=== PATIENT | male | born 1950 | race Caucasian/White ===

== ENCOUNTER → 2018-07-20 | Outpatient (CLI) | payer BC ==
--- NOTE | 2018-07-20 18:37 | PN ---
PROGRESS NOTE DATE OF SERVICE: 07/20/2018 This patient is a 67-year-old gentleman who has been followed in Sleep Center for treatment of obstructive sleep apnea-hypopnea syndrome. Patient continues successfully to use his CPAP equipment every night for the whole night without significant problems with mask fitting, pressure or humidification. [place] Sleepiness Scale today is 11. I checked his CPAP unit. CPAP pressure is 12 cm of water. Usage for the last month is 29/30 nights for more than 4 hours. Average usage is 6.7 hours. Leak is 29 L/minute, which is borderline. Apnea-hypopnea index only 1.18, which is absolutely perfect. MEDICATIONS: 1. Amlodipine. 2. Omeprazole. 3. Hydrochlorothiazide. 4. Lorazepam. 5. Quinapril. PHYSICAL EXAMINATION: GENERAL: A pleasant patient in no distress. VITAL SIGNS: BP 141/74, HR 71, RR 16, height 5 feet 9 inches, weight 236.0, body mass index 34.7, temperature 97.9, oxygen saturation at room air 98%. HEENT: PERRLA, EOMI. Evaluation of oropharynx showed tongue protrudes midline. Low position of soft palate. NECK: Supple. No JVD. Thyroid is not palpable. LUNGS: Clear to percussion and to auscultation. Good air exchange. No wheezing or rhonchi. HEART: S1, S2 regular. No murmurs, gallops or rubs. ABDOMEN: Slightly obese. EXTREMITIES: No clubbing or cyanosis. MONORAIL HELPER: Awake, alert, and oriented X3. Cranial nerves 2 to 7 intact. There is no fasciculation or atrophy. noted. No focal deficits observed. IMPRESSION: 1. Obstructive sleep apnea-hypopnea syndrome. Patient demonstrated 100% compliance with treatment, benefitting from treatment. 2. Mild obesity; body mass index 34.7. Patient lost 5 pounds since his previous visit. 3. Acid reflux. 4. Hypertension. 5. Hyperlipidemia. 6. No clinical symptoms of periodic limb movements. PLAN: 1. Patient will continue to use CPAP equipment with the same regimen of pressure as he is doing now. 2. We fitted the patient with a DreamWear [id number] new type of mask; patient likes it and wanted to try it. I will write a prescription for this mask. 3. Continue losing weight. 4. Sleep hygiene with regular time in bed for at least 8 hours. 5. No driving if feeling any sleepiness. Thank you very much for allowing me to participate in the management of your patient. Sincerely, Dallas Flores MD, PhD, FAASM Diplomat of [place] [employer] Labor Expediter of [facility] [place] MMODL / DANIEL: [id number] /
== END ==
LOC: SLEEP 16:43
PROVIDERS: ATTEND Internal Medicine
DX: G47.33 Obstructive sleep apnea (adult) (pediatric) (principal); E66.9 Obesity, unspecified; K21.9 Gastro-esophageal reflux disease without esophagitis; E78.5 Hyperlipidemia, unspecified; I10 Essential (primary) hypertension; Z68.34 Body mass index [BMI] 34.0-34.9, adult; Z79.899 Other long term (current) drug therapy; Z99.89 Dependence on other enabling machines and devices

== ENCOUNTER → 2018-11-09 | Outpatient (CLI) | payer MEDICARE, BC ==
--- NOTE | 2018-11-09 12:46 | SFUN ---
SLEEP CENTER FOLLOW UP NOTE DATE OF SERVICE: 11/09/2018 A 67-year-old gentleman who has been followed in Sleep Center for treatment of obstructive sleep apnea-hypopnea syndrome. Patient successfully continued to use his CPAP equipment every night for the whole night without significant problems related to mask fitting, pressure or humidification. He sleeps well and does not snore. [place] Sleepiness Scale is 6. I checked his CPAP unit. CPAP pressure is 12 cm of water. Usage is 100% of nights more than 4 hours. Average usage is 7.7 hours. Leak is borderline 29 L/minute. Apnea- hypopnea index is 1.2, which is absolutely normal. MEDICATIONS: Amlodipine, omeprazole, hydrochlorothiazide, lorazepam, Benadryl, Flomax. PHYSICAL EXAM: Patient in no distress BP 133/73, HR 67, RR 14, height 5 feet 9 inches, weight 232.4 pounds with a mass index 34.2, temperature 98.0, oxygen saturation at room air 96% on our oropharynx low position of soft palate, Mallampati 4 abdomen slightly diabetes under physical exam normal VS for my template. IMPRESSION: 1. Obstructive sleep apnea-hypopnea syndrome. The patient demonstrated 100% compliance with treatment benefitting from treatment. 2. Mild obesity. 3. Hypertension. 4. Acid reflux. 5. History of anxiety. 6. Hyperlipidemia. 7. Two recent urinary tract infection was in the range of some inflammation in to the wound to date of old increase size of first is BPH. 8. History of BPH. PLAN: 1. Patient will continue to use CPAP equipment every night for the whole night. 2. Watching and losing weight. 3. Sleep hygiene with regular time in bed for at least 7-1/2 to 8 hours. 4. No driving if feeling sleepiness. 5. We will maintain all necessary CPAP prescription for the AirFit P10 nasal pillow mask, tube, filters. 6. Possibly patient has to use a chin strap. 7. Followup visit in 1 year or earlier if patient has any problems. 8. Thank you very much for allowing me to participate in management of your patient. MMODL / IJN: [id number] /
== END ==
LOC: SLEEP 10:39
PROVIDERS: ATTEND Internal Medicine
DX: G47.33 Obstructive sleep apnea (adult) (pediatric) (principal); E66.9 Obesity, unspecified; I10 Essential (primary) hypertension; K21.9 Gastro-esophageal reflux disease without esophagitis; E78.5 Hyperlipidemia, unspecified; N39.0 Urinary tract infection, site not specified; N40.0 Benign prostatic hyperplasia without lower urinary tract symptoms; Z99.89 Dependence on other enabling machines and devices

== ENCOUNTER → 2019-03-01 | Outpatient (CLI) | payer MEDICARE, BC ==
--- NOTE | 2019-03-01 12:15 | SFUN ---
SLEEP CENTER FOLLOW UP NOTE DATE OF SERVICE: A 68-year-old gentleman who has been followed in the Sleep Center for treatment of obstructive sleep apnea-hypopnea syndrome, Recently patient received his new CPAP unit, and he is able to use CPAP equipment every night for the whole night without significant problems. [place] Sleepiness Scale today is 8. I checked his CPAP unit. Usage is 100% of nights more than 4 hours. Average usage is 7.4 hours per night. CPAP pressure is 12 cm of water. Apnea-hypopnea index only 1.0. Leak is 30 L/minute which is slightly high, but again apnea-hypopnea index is normal while the patient using his CPAP equipment. MEDICATIONS: Flomax, hydrochlorothiazide, lorazepam, amlodipine and metoprolol. PHYSICAL EXAM: Patient in no distress. BP 129/71, HR 72, RR 16, weight 232, temp 97.5, oxygen saturation at room air 96%. OROPHARYNX: Low position of soft palate. Mallampati 3. ABDOMEN: Slightly obese. Neck Supple, no JVD. Thyroid is not palpable. LUNGS Clear to percussion and to auscultation. Good air exchange. No wheezing or rhonchi. HEART S1, S2 regular. No murmurs, gallops, or rubs. EXTREMITIES No clubbing or cyanosis. RADIATION CONTROL WORKER Awake, alert, and oriented X3. Cranial nerves 2 to 7 intact. There is no fasciculation or atrophy. noted. No focal deficits observed. IMPRESSION: 1. Obstructive sleep apnea-hypopnea syndrome. Patient demonstrated 100% compliance with treatment benefitting from treatment. 2. Obesity. 3. Hypertension. 4. Acid reflux. 5. History of anxiety. 6. Hyperlipidemia. 7. History of benign prostatic hypertrophy. PLAN: 1. Patient will continue to use CPAP equipment every night for the whole night. 2. Losing weight. 3. Sleep hygiene with regular time bed for at least 7-1/2 to 8 hours. 4. No driving if feeling sleepiness. Thank you very much for allowing me to participate in the management of your patient. Sincerely, Dallas Flores MD, PhD, FAASM Diplomat of [employer] [employer] [employer] Brush Worker of [facility] [place] MMODL / IJN: [id number] /
== END | disposition home or self-care (01) ==
LOC: SLEEP 11:16
PROVIDERS: ATTEND Internal Medicine
DX: G47.33 Obstructive sleep apnea (adult) (pediatric) (principal); E66.9 Obesity, unspecified; I10 Essential (primary) hypertension; K21.9 Gastro-esophageal reflux disease without esophagitis; E78.5 Hyperlipidemia, unspecified; Z86.59 Personal history of other mental and behavioral disorders; Z87.448 Personal history of other diseases of urinary system; Z99.89 Dependence on other enabling machines and devices; Z79.899 Other long term (current) drug therapy

== ENCOUNTER 2019-11-02 07:53 | Day surgery (SDC) | payer BC, MEDICARE ==
[2019-10-31 08:42] VITALS: BMI 32.7
[2019-11-02 08:22] VITALS: TEMP 98.9
[2019-11-02 09:05] VITALS: RESP 17
[2019-11-02 09:14] VITALS: BP 136/64; PULSE 69
== END 2019-11-02 09:34 | disposition home or self-care (01) ==
LOC: ORWHC2ENDO 07:53
PROVIDERS: ATTEND Internal Medicine Gastroenterology
DX: Z12.11 Encounter for screening for malignant neoplasm of colon (principal); K62.1 Rectal polyp; K57.30 Diverticulosis of large intestine without perforation or abscess without bleeding; Z80.0 Family history of malignant neoplasm of digestive organs; I10 Essential (primary) hypertension; G47.33 Obstructive sleep apnea (adult) (pediatric); N40.0 Benign prostatic hyperplasia without lower urinary tract symptoms; Z88.0 Allergy status to penicillin; Z88.5 Allergy status to narcotic agent; Z79.899 Other long term (current) drug therapy
CPT/HCPCS: 88305; 45380; J2704

== ENCOUNTER → 2020-02-07 | Outpatient (CLI) | payer MEDICARE, BC ==
--- NOTE | 2020-02-07 18:00 | SFUN ---
SLEEP CENTER FOLLOW UP NOTE DATE OF SERVICE: 02/07/2020 This patient is a 69-year-old gentleman who has been followed in Sleep Center for treatment of obstructive sleep apnea-hypopnea syndrome. The patient continues to use his CPAP equipment every night. He is satisfied with his nasal pillow mask. He sleeps well. [place] Sleepiness Scale today is 9. I checked his CPAP unit. CPAP pressure is 12 cm of water. Usage is 30/30 nights for more than 4 hours with average usage 7.9 hours per night. Leak is around 36 L/minute, which is high, but apnea-hypopnea index is absolutely normal at only 1.2. MEDICATIONS: Flomax, hydrochlorothiazide, lorazepam, amlodipine, metoprolol, finasteride, Cialis. PHYSICAL EXAMINATION: GENERAL: A pleasant patient in no distress. VITAL SIGNS: BP 121/65, HR 74, RR 16, height 5 feet 9 inches, weight 208, body mass index 30.7, temperature 98.5, oxygen saturation at room air 97%. HEENT: PERRLA, EOMI. Evaluation of oropharynx showed tongue protrudes midline. Low position of soft palate. Mallampati III. NECK: Supple. No JVD. Thyroid is not palpable. LUNGS: Clear to percussion and to auscultation. Good air exchange. No wheezing or rhonchi. HEART: S1, S2 regular. No murmurs, gallops or rubs. ABDOMEN: Soft and nontender. Bowel sounds are present. No organomegaly. EXTREMITIES: No clubbing or cyanosis. SALES BRANCH MANAGER: Awake, alert, and oriented X3. Cranial nerves 2 to 7 intact. There is no fasciculation or atrophy. noted. No focal deficits observed. IMPRESSION: 1. Obstructive sleep apnea-hypopnea syndrome. Patient demonstrated 100% compliance with treatment, benefitting from treatment. 2. Some leak has been documented by reading from the machine. Patient started to use a chin strap. 3. Obesity. Patient has lost about 25 pounds since his previous visit. 4. Hypertension. 5. Acid reflux. 6. History of anxiety. 7. Hyperlipidemia. 8. History of benign prostatic hypertrophy. The patient is preparing for surgical treatment of BPH. PLAN: 1. Continue using CPAP equipment every night for the whole night. 2. Sleep hygiene with regular time in bed for at least 7-1/2 to 8 hours. 3. No driving if feeling any sleepiness. 4. Patient will take CPAP unit with him to the hospital. 5. Follow-up visit in 6 months. Thank you very much for allowing me to participate in the management of your patient. Sincerely, Dallas Flores MD, PhD, FAASM Diplomat of [place] Dam Worker of [facility] [place] MMODL / ARICN: [id number] /
== END | disposition home or self-care (01) ==
LOC: SLEEP 13:27
PROVIDERS: ATTEND Internal Medicine
DX: G47.33 Obstructive sleep apnea (adult) (pediatric) (principal); E66.9 Obesity, unspecified; I10 Essential (primary) hypertension; K21.9 Gastro-esophageal reflux disease without esophagitis; E78.5 Hyperlipidemia, unspecified; Z68.30 Body mass index [BMI] 30.0-30.9, adult; Z86.59 Personal history of other mental and behavioral disorders; Z87.430 Personal history of prostatic dysplasia; Z79.899 Other long term (current) drug therapy

== ENCOUNTER → 2020-09-10 | Outpatient (CLI) | payer MEDICARE ==
--- NOTE | 2020-09-10 19:58 | SFUN ---
SLEEP CENTER FOLLOW UP NOTE DATE OF SERVICE: 09/10/2020 This is a 69-year-old gentleman has been followed in Sleep Center for treatment of obstructive sleep apnea-hypopnea syndrome. Patient successfully continues to use his CPAP equipment every night. Sometimes he has difficulties breathing through the nose. He is using a nasal mask. He is thinking that maybe he should have also a full-face mask. [place] Sleepiness Scale today is 6. I checked the patient's CPAP unit. CPAP pressure is 12 cm of water. Usage is 30/30 nights for more than 4 hours with average usage 7.9 hours per night. Leak is 23 L/minute, which is significantly less than during the last time when it was 36 L/minute. Apnea-hypopnea index is 1.2, which is perfect. MEDICATIONS: 1. Hydrochlorothiazide 25 mg once a day. 2. Quinapril 20 mg twice a day. 3. Amlodipine 5 mg once a day. 4. Lorazepam 1 mg on a p.r.n. basis. 5. Omeprazole 20 mg once a day. PHYSICAL EXAMINATION: GENERAL: A pleasant patient in no distress. VITAL SIGNS: BP 141/73, HR 64, RR 15, height 5 feet 10 inches, weight 221.6, temperature 98.2, oxygen saturation on room air 97%. HEENT: PERRLA, EOMI. Evaluation of oropharynx showed tongue protrudes midline. Low position of soft palate. Mallampati III. NECK: Supple. No JVD. Thyroid is not palpable. LUNGS: Clear to percussion and to auscultation. Good air exchange. No wheezing or rhonchi. HEART: S1, S2 regular. No murmurs, gallops or rubs. ABDOMEN: Slightly obese. EXTREMITIES: No clubbing or cyanosis. ONCOLOGY COORDINATOR: Awake, alert, and oriented X3. Cranial nerves 2 to 7 intact. There is no fasciculation or atrophy. noted. No focal deficits observed. IMPRESSION: 1. Obstructive sleep apnea-hypopnea syndrome. Patient demonstrated great compliance with treatment, benefitting from treatment. 2. Obesity. 3. Status post recent TURP surgical procedure for BPH. 4. Hypertension. 5. Acid reflux. 6. History of anxiety. 7. History of BPH. PLAN: 1. Patient will continue to use PAP equipment every night for the whole night. 2. Sleep hygiene with regular time in bed for at least 7-1/2 to 8 hours. 3. Precautions related to driving. No driving if feeling sleepiness. 4. I will maintain all necessary prescription for PAP supplies including mask, tube, filters. 5. Watching weight. 6. No driving if feeling sleepiness. 7. Follow-up visit in 6 months or earlier if patient has any problems. 8. Prescription for full-face mask of patient's choice. Thank you very much for allowing me to participate in the management of your patient. Sincerely, Dallas Flores MD, PhD, FAASM Diplomat of [place] [employer] Carrot Grader Inspector of [facility] [place] MMODL / IJN: [id number] /
== END | disposition home or self-care (01) ==
LOC: SLEEP 14:31
PROVIDERS: ATTEND Internal Medicine
DX: G47.33 Obstructive sleep apnea (adult) (pediatric) (principal); E66.9 Obesity, unspecified; I10 Essential (primary) hypertension; K21.9 Gastro-esophageal reflux disease without esophagitis; Z87.430 Personal history of prostatic dysplasia; Z86.59 Personal history of other mental and behavioral disorders; Z90.79 Acquired absence of other genital organ(s); Z79.899 Other long term (current) drug therapy

== ENCOUNTER → 2020-10-28 | Outpatient (CLI) | payer MEDICARE ==
--- NOTE | 2020-10-28 14:12 | ECHOS ---
STRESS ECHOCARDIOGRAM LUMASON: N/A Vial INDICATIONS: Chest pain MEDICATIONS: BASELINE HEART RATE: 65 BASELINE BLOOD PRESSURE: 119/57 MAXIMUM HEART RATE: 146 MAXIMUM BLOOD PRESSURE: 165/57 85% MPHR: 130 100% MPHR: 153 METS: 8.7 MAXIMUM STAGE REACHED: 3 TOTAL EXERCISE TIME: 7 minutes and 15 seconds. CLINICAL INFORMATION: Baseline rhythm is sinus mechanism, rate 65, normal axis and intervals, poor R progression. Rare PVCs. Baseline blood pressure 119/57 mmHg. Patient exercised on Cyril protocol for 7 minute 15 seconds reaching peak rate 146 beats per minute which is equal to 95% of maximum predicted heart rate. Peak blood pressure 165/57 mmHg. Patient had mild chest discomfort at peak exercise. Electrocardiograph monitoring revealed [address]- segment depression that resolved in recovery. Baseline echocardiogram revealed normal wall motion. At peak exercise, there was a moderate-sized area of mild hypokinesis involving the mid anterior and anteroseptal wall with improvement in recovery images. CONCLUSION: 1. Average exercise tolerance with borderline positive electrocardiograph stress testing. 2. Abnormal stress echocardiogram with evidence of stress-induced ischemia involving the mid anterior and anteroseptal wall. MMODL / IJN: [id number] /
== END ==
LOC: RADNMMAIN 09:50
PROVIDERS: ATTEND Internal Medicine
DX: I99.8 Other disorder of circulatory system (principal)
CPT/HCPCS: 93351

== ENCOUNTER 2020-11-04 06:31 | Day surgery (SDC) | payer MEDICARE ==
[~2020-11-04 06:31] MED LIST: ALPRAZolam 0.25 MG TAB PO PRN; ALPRAZolam 0.5 MG TAB PO PRN; HEPARIN SODIUM,PORCINE 10,000 UNIT in SODIUM CHLORIDE 0.9% 1,000 ML IRRIGATION PRN; HEPARIN SODIUM,PORCINE 2,500 UNIT in SODIUM CHLORIDE 0.9% 250 ML IRRIGATION PRN; SODIUM CHLORIDE 0.9% 1,000 ML in EMPTY BAG 1 BAG IV ONE
[2020-11-04] MEDS ORDERED: IV FLUID CONTINUATION 950 ML IV ONE (06:43)
[2020-11-04] MEDS ORDERED: ATORVASTATIN 80 MG TAB PO ONE (07:00)
[2020-11-04] MEDS ORDERED: ASPIRIN 325 MG TAB PO ONE (07:00)
[2020-11-04] MEDS ORDERED: HEPARIN SODIUM 1,000 UN/ML (10ML VL) ONE (07:39)
[2020-11-04] MEDS ORDERED: LIDOCAINE 1% INJ 10MG/ML (20 ML MDV) ONE (07:40)
[2020-11-04] MEDS ORDERED: VERAPAMIL 2.5 MG/ML 2 ML AMP ONE (07:40)
[2020-11-04] MEDS ORDERED: fentaNYL (PF) 50 MCG/ML 2 ML AMP ONE (07:40)
[2020-11-04 07:43] LABS: Basophils % (A) 0 %; Eosinophils # (A) 0.1 k/uL (0-0.7); Eosinophils % (A) 2 %; HCT 42.6 % (39.0-53.0); Lymphocytes # (A) 1.8 k/uL (1.0-4.8); Lymphocytes % (A) 29 %; MCH 31.2 pg (25.0-35.0); MCHC 35.3 g/dL (31.0-37.0); MCV 88.4 fL (80.0-100.0); Mean Platelet Volume 8.7; Monocytes # (A) 0.4 k/uL (0-1.0); Monocytes % (A) 7 %; Neutrophils # (A) 3.7 k/uL (1.3-7.7); Neutrophils % (A) 60 %; Platelet Count 289 k/uL (150-450); RBC 4.82 m/uL (4.30-5.90); RDW 12.4 % (11.5-15.5); WBC 6.2 k/uL (3.8-10.6)
[2020-11-04] MEDS ORDERED: fentaNYL (PF) 50 MCG/ML 2 ML AMP IVP ONE (07:47)
[2020-11-04] MEDS ORDERED: LIDOCAINE 1% INJ 10MG/ML (20 ML MDV) SQ ONE (07:48)
[2020-11-04] MEDS ORDERED: VERAPAMIL SYRINGE (5 MG/10 ML) INTRAARTER ONE (07:52)
[2020-11-04] MEDS ORDERED: MIDAZOLAM 2 MG/2 ML VIAL IVP ONE (07:58)
[2020-11-04] MEDS: HEPARIN SODIUM 1,000 UN/ML (10ML VL) IV ONE ×2 (08:00→08:06)
[2020-11-04] MEDS ORDERED: CLOPIDOGREL 75 MG TAB ONE (08:10)
[2020-11-04] MEDS ORDERED: CLOPIDOGREL 75 MG TAB PO ONE (08:13)
[2020-11-04] MEDS ORDERED: NITROGLYCERIN 1000MCG/10ML SYRINGE INTRACORON ONE (08:20)
[2020-11-04] MEDS ORDERED: IOPAMIDOL-370 125ML BTL INJ ONE ×2 (08:23→08:59)
[2020-11-04] MEDS ORDERED: ADENOSINE 90 MG in SODIUM CHLORIDE 0.9% 60 ML IVP ONE (08:45)
[2020-11-04] MEDS ORDERED: NITROGLYCERIN SL TABS 0.4 MG TAB SUBLINGUAL PRN (09:15)
[2020-11-04] MEDS ORDERED: RX INFO: IV CONTRAST WAS GIVEN 1 EACH MISC MISCELLANE PRN (09:15)
[2020-11-04] MEDS ORDERED: ZOLPIDEM 5 MG TAB PO PRN (09:15)
[2020-11-04] MEDS ORDERED: SODIUM CHLORIDE 0.9% 1,000 ML IV SCH (09:15)
[2020-11-04] MEDS ORDERED: ATROPINE SULFATE 0.1 MG/ML 10ML SYRINGE IV PRN (09:15)
[2020-11-04] MEDS ORDERED: prednisoLONE ACETATE 1% OPHTH DROPS 5 ML BTL BOTH EYES PRN (09:16)
--- NOTE | 2020-11-04 09:45 | CC ---
CARDIAC CATHETERIZATION REPORT Mr. Meeks is a 69-year-old male with a known history of hypertension, hyperlipidemia, who has been complaining of chest discomfort. He underwent stress echocardiogram revealed evidence of inducible ischemia in the mid antral and septal wall. In view of that, recommendation was made regarding cardiac catheterization. The procedure as well as the risks and the complications were discussed with the patient who is in full understanding and agreement. PROCEDURE: Patient was brought to the oven laborer in a fasting semi-sedated state after receiving fentanyl and Benadryl and achieving moderate conscious sedated state. Using Xylocaine anesthesia and Seldinger technique, a 6-[place] Citizen sheath was introduced in the right radial artery. Selective right and left coronary angiography performed using 5- [place] Citizen 3.5 bend right and left James catheter. Multiple views of the coronary artery including hemiaxial views were obtained. Following that, a 5-[place] Citizen tight pigtail catheter was introduced in the left ventricle and pressures were calculated. Following that, catheters were removed. Images were reviewed. FINDINGS: FLUOROSCOPY: There was severe calcification involving the LAD as well as the right coronary artery. LEFT MAIN: This is a short size vessel, bifurcating into left circumflex, left anterior descending artery. Left main coronary artery has no evidence of high-grade stenosis. LEFT ANTERIOR DESCENDING ARTERY: This is a large-sized vessel reaching to the apex with a wraparound apex segment giving rise to 2 diagonal branches. The first one is larger in caliber. The LAD proximally prior to the takeoff of the first septal supervisor throwing department has a 90% stenosis. There is another 60% to 70% plaque in the mid LAD. The rest of the vessel has no high-grade stenosis. LEFT CIRCUMFLEX: This is a nondominant vessel giving rise to 2 obtuse marginal branches. The first one is large in caliber. The left circumflex has mild intimal disease without any evidence of high-grade stenosis. RIGHT CORONARY ARTERY: This is a large dominant vessel bifurcating distally PDA and posterolateral segment and branches. The right coronary artery in the mid segment has a 60% to 70% plaque. The distal vessel has mild intimal disease without any evidence of high-grade stenosis. LEFT VENTRICULOGRAM: The left ventriculogram was not performed. HEMODYNAMICS: There was no gradient across the aortic valve. The left ventricular end- diastolic pressure was 12-16 mmHg. CONCLUSION: 1. Calcified coronary arteries. 2. Critical stenosis in the proximal LAD with moderate disease in the mid LAD. 3. Moderate to significant disease in the mid RCA. 4. Mild disease in left circumflex. RECOMMENDATION: In view of finding anatomy, I recommend proceeding with angioplasty and stenting of the LAD and subsequent measurement of the fractional flow reserve of the RCA to determine the need to undergo any further intervention. Those findings and recommendation were discussed with the patient and he is in full understanding and agreement. MMRADHA / ARICN: [id number] / MTDDiane
[2020-11-04 09:46] VITALS: RESP 16
--- NOTE | 2020-11-04 09:53 | PTCA ---
PERCUTANEOUSTRANS CORORONARY ANGIOGRAPHY Mr. Meeks is a 69-year-old male with known history of hypertension, hyperlipidemia, who had an abnormal stress echocardiogram underwent cardiac catheterization was found to have critical stenosis involving the proximal LAD with moderate significant disease in the mid right coronary artery. In view of that, recommendation was made regarding angioplasty and stenting, the procedure as well as the risks and the complications were discussed with the patient who is in full understanding and agreement. PROCEDURE: A 6-Jamaican EBU 3.75 guiding catheter introduced in the system. After cannulating the left main, a 0.014 balanced medium weight J-wire was advanced across the lesion, positioned distally. Subsequently a 3.0 x 12 mm NC Trek balloon was advanced and 2 inflations maximum of 12 atmospheres were done. From that, the balloon was removed and a 3.5 x 18 mm Xience Velma stent was deployed and postdilated at 16 atmospheres. Following that, the balloon was removed and a 4.0 x 12 mm NC Trek balloon was advanced and one inflation of proximal segment of the stent at 12 atmospheres were done. After the last inflation, after appropriate wait, the balloon and the guidewire were withdrawn back in the guiding catheter. Images were obtained and repeated. Those images reveal stable successful stenting. At that point, the guiding catheter, the balloon and the guidewire were removed and a 6-Jamaican FR4 guiding catheter introduced in the system and after cannulating the right coronary ostium a Doppler flow wire was introduced and positioned in the distal right coronary artery. After normalization, FFR was measured after the infusion of adenosine per protocol and it was 80%. At that point, a 4.0 x 15 mm Xience Velma stent was advanced, deployed and postdilated at 16 atmospheres. After the last inflation, after appropriate wait the balloon and the guidewire were withdrawn back in the guiding catheter. Images were obtained and repeated. Those images reveal stable successful stenting. At that point, the guiding catheter, the balloon and the guidewire were removed. The sheath was removed. Hemostasis was obtained with deployment of a TR band. There was no immediate complication. Patient was returned to his room in stable condition. Of note, the patient received a total of 8000 units of intravenous heparin, his ACT was followed. He received an oral loading dose of clopidogrel. He had chest discomfort and mild EKG changes that resolved at the end the procedure. RESULTS: 1. Successful stenting of the proximal LAD with reduction of stenosis from 90% to 0%. 2. Successful stenting of the mid right coronary artery with reduction of stenosis from 60% to 70% down to 0% with a pre-positive FFR. RECOMMENDATION: Patient will be continued on aspirin, Plavix and statin. Dual antiplatelet treatment was discussed with the patient and he is in full understanding and agreement. Duration of sedation is 69 minutes. MMODL / IJN: [id number] /
--- NOTE | 2020-11-04 10:01 | LTR ---
November 04, 2020 Re: Luis Meeks Dear Dr. Ibarra: I had the opportunity to perform cardiac catheterization and coronary angioplasty and stenting on Mr. Meeks at [facility] on the 04 of November and a full copy of the procedure note will be forwarded to you. In brief, he was found to have critical stenosis in the proximal LAD and moderate to severe disease in the mid right coronary artery. He underwent successful stenting of the proximal LAD and subsequently underwent fractional flow reserve measurement of the mid RCA, that came to be hemodynamically significant, underwent stenting of that vessel. I am hopeful that this procedure will stabilize his status. Thank you again for allowing me the opportunity to participate in his care. Please feel free to call for any questions. Sincerely yours, MD SANDRINE CastellonL / DANIEL: [id number] /
[2020-11-04] MEDS: lisinopriL 20 MG TAB PO SCH (20:17)
[2020-11-04] MEDS ORDERED: ATORVASTATIN 80 MG TAB PO SCH (21:00)
[2020-11-05] MEDS: NITROGLYCERIN SL TABS 0.4 MG TAB SUBLINGUAL PRN ×2 (00:12→00:17)
[2020-11-05] MEDS: MAG HYDROX/AL HYDROX/SIMETH 30 ML CUP PO PRN ×2 (00:25→10:18)
[2020-11-05 05:27] LABS: African American GFR (CKD) >90 (>60 ml/min/1.73 sqM); Anion Gap 10 mmol/L; Blood Urea Nitrogen 17 mg/dL (9-20); Calcium 9.6 mg/dL (8.4-10.2); Carbon Dioxide 29 mmol/L (22-30); Chloride 96 mmol/L (98-107); Glucose 103 mg/dL (74-99); Non-African American GFR(CKD) >90 (>60 ml/min/1.73 sqM); Potassium 4.4 mmol/L (3.5-5.1); Sodium 135 mmol/L (137-145)
[2020-11-05 07:58] VITALS: BP 120/73; PULSE 61; TEMP 97.6
[2020-11-05] MEDS: lisinopriL 20 MG TAB PO SCH (08:55)
[2020-11-05] MEDS ORDERED: PANTOPRAZOLE 40 MG TABLET PO SCH (09:00)
[2020-11-05] MEDS ORDERED: MULTIVITAMINS, THERA 1 EACH TAB PO SCH (09:00)
[2020-11-05] MEDS ORDERED: MAGNESIUM OXIDE 400 MG TAB PO SCH (09:00)
[2020-11-05] MEDS ORDERED: hydroCHLOROthiazide 25 MG TAB PO SCH (09:00)
[2020-11-05] MEDS ORDERED: amLODIPine 5 MG TAB PO SCH (09:00)
[2020-11-05] MEDS ORDERED: ASPIRIN 81 MG PO SCH (09:00)
[2020-11-05] MEDS ORDERED: CHOLECALCIFEROL 25 MCG (1000 IU) TABLET PO SCH (09:00)
[2020-11-05] MEDS ORDERED: CLOPIDOGREL 75 MG TAB PO SCH (09:15)
--- NOTE | 2020-11-05 13:37 | P.DS ---
Providers Attending physician: Rudy Sandoval Consults: 11/04/20 09:15 Consult Physician Routine Consulting Provider: [facility] Consult Reason/Comments: Post Interventional patient Do you want consulting provider notified?: Already Contacted INTERVAL HISTORY: The patient is a 69-year-old male admitted to the hospital by . History of hypertension, hyperlipidemia, who had an abnormal stress echocardiogram underwent cardiac catheterization was found to have critical stenosis involving the proximal LAD with moderate significant disease in the mid right coronary artery. Recommendation was made regarding angioplasty and stenting, the procedure as well as the risks, consultations were discussed with the patient. On 11/04/20, cardiac catheterization was performed with PCI successful stenting of the proximal LAD with reduction of stenosis from 90% 0%. Successful stenting of the mid right coronary artery reduction of stenosis from 60% to 70% down to 0% with a pre-positive FFR. Patient will continue on aspirin, Plavix and statin, as well as his antihypertensive medication. On 11/05/20 patient did have some atypical chest pain, similar symptoms prior to catheterization. Troponins were monitored and mildly elevated, peaked at 0.099. Patient was stable for discharge. PHYSICAL EXAMINATION: Blood pressure 120/73, heart rate 61, respirations 16, temp 97.6. Patient is 97 % room air. HEART: S1, S2 normal. LUNGS: Clear to auscultation. NECK: Supple. ABDOMEN: Soft. EXTREMITIES: 2+ peripheral pulses. Right radial artery cath site clean and dry, 2+ pulses, no ecchymosis or bleeding LAB DATA: Sodium 135, potassium 4.4, BUN 17, creatinine 0.84, troponin trend 0.099-->0.071 FINAL IMPRESSION: 1. Hypertension 2. Coronary artery disease s/p cardiac catheterization and stenting of the proximal LAD and mid RCA 3. History of obstructive sleep apnea- uses CPAP. 4. Dyslipidemia. PLAN: Patient may be able to be discharged home today. We will make him a follow-up appointment with Dr. Sandoval at scheduled appointment on 11/12/20. Primary care physician: Rudy Ibarra MD Plan - Discharge Summary Discharge Rx Participant: No New Discharge Prescriptions: New Atorvastatin [Lipitor] 80 mg PO HS 90 Days #90 tab Clopidogrel [Plavix] 75 mg PO DAILY 90 Days #90 tab Aspirin 81 mg PO DAILY chew Continue amLODIPine BESYLATE [Amlodipine Besylate] 5 mg PO DAILY Quinapril HCl [Accupril] 20 mg PO BID Omeprazole 20 mg PO DAILY LORazepam [Lorazepam] 1 mg PO HS PRN PRN Reason: SLEEP Hydrochlorothiazide 25 mg PO DAILY Multivitamin [Men's Multi-Vitamin] 1 tab PO DAILY Fish Oil/Dha/Epa [Fish Oil 1,200 mg Fish Oil] 1 each PO DAILY Turmeric Root Extract [Turmeric] 500 mg PO DAILY Prednisolone Acetate/Pf [Prednisolone Acet 1% Eye Drop] 1 drop BOTH EYES DIRECTED PRN PRN Reason: allergic conjunctivitis Famotidine [Pepcid] 20 mg PO DAILY PRN PRN Reason: Heartburn Cholecalciferol [Vitamin D3 (25 Mcg = 1000 Iu)] 50 mcg PO DAILY Magnesium 400 mg PO DAILY Aspirin 81 mg PO DAILY Discharge Medication List Hydrochlorothiazide 25 mg PO DAILY 08/07/14 [History] LORazepam [Lorazepam] 1 mg PO HS PRN 08/07/14 [History] Omeprazole 20 mg PO DAILY 08/07/14 [History] Quinapril HCl [Accupril] 20 mg PO BID 08/07/14 [History] amLODIPine BESYLATE [Amlodipine Besylate] 5 mg PO DAILY 08/07/14 [History] Multivitamin [Men's Multi-Vitamin] 1 tab PO DAILY 01/01/15 [History] Fish Oil/Dha/Epa [Fish Oil 1,200 mg Fish Oil] 1 each PO DAILY 10/31/19 [History] Prednisolone Acetate/Pf [Prednisolone Acet 1% Eye Drop] 1 drop BOTH EYES DIRECTED PRN 10/31/19 [History] Turmeric Root Extract [Turmeric] 500 mg PO DAILY 10/31/19 [History] Aspirin 81 mg PO DAILY 11/03/20 [History] Cholecalciferol [Vitamin D3 (25 Mcg = 1000 Iu)] 50 mcg PO DAILY 11/03/20 [History] Famotidine [Pepcid] 20 mg PO DAILY PRN 11/03/20 [History] Magnesium 400 mg PO DAILY 11/03/20 [History] Aspirin 81 mg PO DAILY chew 11/05/20 [Rx] Atorvastatin [Lipitor] 80 mg PO HS 90 Days #90 tab 11/05/20 [Rx] Clopidogrel [Plavix] 75 mg PO DAILY 90 Days #90 tab 03/17/21 [Rx] Follow up Appointment(s)/Referral(s): Rudy Sandoval MD [STAFF PHYSICIAN] - 11/12/20 3:00 pm
== END 2020-11-05 14:10 | disposition home or self-care (01) ==
LOC: CATHCVL 06:31 → 6NMEDSUR 09:05 → CATHCVL 11-05 14:10
PROVIDERS: ATTEND Internal Medicine Interventional Cardiology
DX: I25.10 Atherosclerotic heart disease of native coronary artery without angina pectoris (principal); I25.84 Coronary atherosclerosis due to calcified coronary lesion; I10 Essential (primary) hypertension; E78.00 Pure hypercholesterolemia, unspecified; Z82.49 Family history of ischemic heart disease and other diseases of the circulatory system; E78.5 Hyperlipidemia, unspecified; G47.33 Obstructive sleep apnea (adult) (pediatric); Z99.89 Dependence on other enabling machines and devices; Z90.49 Acquired absence of other specified parts of digestive tract; Z98.890 Other specified postprocedural states; Z87.891 Personal history of nicotine dependence; Z79.82 Long term (current) use of aspirin; Z79.899 Other long term (current) drug therapy; Z88.0 Allergy status to penicillin
CPT/HCPCS: 93571; 93458; 85347; 80048; 84484; 85025; C9600 ×2; C1769 ×2; C1887 ×2; C1725 ×2; C1874; C1894; J2250; J2001; J3010; J1644; J0153; Q9967

== ENCOUNTER → 2021-04-22 | Outpatient (CLI) | payer MEDICARE ==
--- NOTE | 2021-04-23 10:20 | SFUN ---
SLEEP CENTER FOLLOW UP NOTE DATE OF SERVICE: 04/22/2021 70-year-old gentleman has been followed in Sleep Center for treatment of obstructive sleep apnea-hypopnea syndrome. The patient successfully continues to use his CPAP equipment every night getting all his supplies. He wanted to change his CPAP to a different style of the mask. [place] Sleepiness Scale today is 6. I checked CPAP unit. Pressure is 12 cm of water, usage 30/30 nights for more than 4 hours, average 7.9 hours per night. Leak is 25 L/minutes. Apnea-hypopnea index 1.4 which is absolutely normal. MEDICATIONS: Plavix 75 mg once a day, Lipitor 80 mg once a day, aspirin 81 mg once a day, hydrochlorothiazide 25 mg once a day, quinapril 25 mg twice a day, amlodipine 5 mg once a day, lorazepam 1 mg as needed. Omeprazole 20 mg as needed. Pepcid 20 mg as needed, Viagra 100 mg, prednisolone acetate eye drops 2 times a day as needed. Turmeric 500 mg once a day. PHYSICAL EXAMINATION: GENERAL: Patient in no distress. BP 131/69, HR 70, RR 15, height 5 feet 9 inches, weight 218, body mass index 32.1, temperature 98.0. Oxygen saturation at room air 97%. Oropharynx low position of soft palate, Mallampati 3. NECK: Supple, no JVD. Thyroid is not palpable. LUNGS: Clear to percussion and to auscultation. Good air exchange. No wheezing or rhonchi. HEART: S1, S2 regular. No murmurs, gallops, or rubs. ABDOMEN: Obese. Soft and nontender. Bowel sounds are present. No organomegaly appreciated. EXTREMITIES: No clubbing or cyanosis. IRRIGATION TAX ASSESSOR COLLECTOR: Awake, alert, and oriented X3. Cranial nerves 2 to 7 intact. There is no fasciculation or atrophy. noted. No focal deficits observed. IMPRESSION: 1. Obstructive sleep apnea-hypopnea syndrome patient demonstrated 100% compliance with treatment benefitting from treatment. 2. Recently found coronary artery disease by results of stress test, status post stent insertions in 2 arteries. 3. Obesity. 4. Status post recent TURP surgical procedure for benign prostatic hypertrophy. 5. Hypertension. 6. Acid reflux. 7. History of anxiety. PLAN: 1. Prescription for mask of patient's choice. 2. Patient will continue to use PAP equipment every night for the whole night. 3. Sleep hygiene with regular time in bed for at least 7-1/2 to 8 hours. 4. Precautions related to driving. No driving if feeling sleepiness. 5. I will maintain all necessary prescription for PAP supplies including mask, tube, filters. 6. Watching weight. 7. Follow-up visit in 6 months or earlier if patient has any problems. Thank you very much for allowing me to participate in management of your patient. Sincerely, Dallas Flores MD, PhD, FAASM Diplomat of [place] [employer] Sleep Medicine Board of [place] [employer] Production Operations Engineer of [facility] [place] MMODL / IJN: [id number] /
== END ==
LOC: SLEEP 15:35
PROVIDERS: ATTEND Internal Medicine
DX: G47.33 Obstructive sleep apnea (adult) (pediatric) (principal); I25.10 Atherosclerotic heart disease of native coronary artery without angina pectoris; E66.9 Obesity, unspecified; I10 Essential (primary) hypertension; K21.9 Gastro-esophageal reflux disease without esophagitis; F41.9 Anxiety disorder, unspecified; Z95.5 Presence of coronary angioplasty implant and graft; Z90.79 Acquired absence of other genital organ(s); Z68.32 Body mass index [BMI] 32.0-32.9, adult; Z79.899 Other long term (current) drug therapy; Z91.048 Other nonmedicinal substance allergy status; Z88.1 Allergy status to other antibiotic agents; Z88.5 Allergy status to narcotic agent

== ENCOUNTER → 2021-11-19 | Outpatient (CLI) | payer MEDICARE ==
--- NOTE | 2021-11-19 13:09 | SFUN ---
SLEEP CENTER FOLLOW UP NOTE DATE OF SERVICE: 11/19/2021 INTERVAL HISTORY: This 70-year-old gentleman has been followed in Sleep Center for treatment of obstructive sleep apnea-hypopnea syndrome. The patient continues to use his CPAP equipment every night for the whole night. No episodes of snoring during sleep. [place] Sleepiness Scale today is 8, which is absolutely normal. I checked his CPAP unit. Pressure is 12 cm of water. Usage is 30/30 nights for more than 4 hours, average 8.1 hours per night, which is great compliance. Leak is 23 L/minute, which is borderline. Apnea-hypopnea index is 1.1, which is normal. The air filter needs to be changed. MEDICATIONS: 1. Aspirin 81 mg once a day. 2. Plavix 75 mg once a day. 3. Lipitor 80 mg once a day. 4. Clindamycin. 5. Hydrochlorothiazide 25 mg once a day. 6. 20 mg twice a day. 7. Amlodipine 5 mg once a day. 8. Lorazepam 1 mg as needed at bedtime. 9. Omeprazole 20 mg as needed. 10.Pepcid 20 mg as needed. 11.Multivitamins. 12.Fish oil. PHYSICAL EXAMINATION: GENERAL: Pleasant patient in no distress. VITAL SIGNS: BP 141/84, HR 72, RR 16, weight 233.4, height 5 feet 9 inches, temperature 97.0, oxygen saturation room air 98%. HEENT: PERRLA, EOMI, evaluation of oropharynx showed tongue protrudes midline. Low position of soft palate; Mallampati III. NECK: Supple, no JVD. Thyroid is not palpable. LUNGS: Clear to percussion and to auscultation. Good air exchange. No wheezing or rhonchi. HEART: S1, S2 regular. No murmurs, gallops, or rubs. ABDOMEN: Soft and nontender. Bowel sounds are present. No organomegaly appreciated. EXTREMITIES: No clubbing or cyanosis. RELIABILITY TECHNICIANS: Awake, alert, and oriented X3. Cranial nerves 2 to 7 intact. There is no fasciculation or atrophy. noted. No focal deficits observed. IMPRESSION: 1. Obstructive sleep apnea-hypopnea syndrome. Patient demonstrated great compliance with treatment, benefitting from treatment. Totally normal respiration on CPAP. 2. Coronary artery disease, status post two stent insertions. 3. Hypertension. 4. Acid reflux. 5. History of anxiety. 6. Status post TURP surgical procedure for benign prostatic hypertrophy. 7. Obesity. PLAN: 1. Patient should replace air filter immediately. 2. Patient will continue to use PAP equipment every night for the whole night. 3. Sleep hygiene with regular time in bed for at least 7-1/2 to 8 hours. 4. Precautions related to driving. No driving if feeling sleepiness. 5. I will maintain all necessary prescription for PAP supplies including mask, tube, filters. 6. Watching weight. 7. Follow-up visit in 6 months or earlier if patient has any problems. Thank you very much for allowing me to participate in the management of your patient. Sincerely, Dallas Flores MD, PhD, FAASM Diplomat of [place] [employer] Sleep Medicine Board of [place] [employer] Glass Lathe Operator of [facility] [place] MMIFEANYIL / DANIEL: [id number] /
== END ==
LOC: SLEEP 09:50
PROVIDERS: ATTEND Internal Medicine
DX: G47.33 Obstructive sleep apnea (adult) (pediatric) (principal); I25.10 Atherosclerotic heart disease of native coronary artery without angina pectoris; I10 Essential (primary) hypertension; K21.9 Gastro-esophageal reflux disease without esophagitis; Z99.89 Dependence on other enabling machines and devices; E66.9 Obesity, unspecified; Z98.890 Other specified postprocedural states; Z79.01 Long term (current) use of anticoagulants; Z88.1 Allergy status to other antibiotic agents; Z88.5 Allergy status to narcotic agent; Z91.048 Other nonmedicinal substance allergy status

== ENCOUNTER → 2022-03-04 | Outpatient (CLI) | payer MEDICARE ==
[2022-03-04 14:54] LABS: ALT 24 U/L (10-49); AST 28 U/L (14-35); African American GFR (CKD) 105.6 (60.0-200.0); Albumin 4.4 g/dL (3.8-4.9); Albumin/Globulin Ratio 1.63 (1.60-3.17); Alkaline Phosphatase 70 U/L (41-126); Blood Urea Nitrogen 18.8 mg/dL (9.0-27.0); Calcium 8.9 mg/dL (8.7-10.3); Carbon Dioxide 24.1 mmol/L (20.0-27.5); Chloride 98 mmol/L (96-109); Chol/HDL Ratio 2.15 Ratio; Globulin 2.7 g/dL (1.6-3.3); Glucose 105 mg/dL (70-110); LDL Cholesterol,Calculated 46.9 mg/dL (0.0-131.0); Non-African American GFR(CKD) 91.1 (60.0-200.0); Potassium 3.9 mmol/L (3.5-5.5); Sodium 134 mmol/L (135-145); Total Protein 7.1 g/dL (6.2-8.2); VLDL Calculation 15.68 mg/dL (5.00-40.00)
== END | disposition home or self-care (01) ==
LOC: LABWHC1 08:37
PROVIDERS: ATTEND Internal Medicine Interventional Cardiology
DX: E78.2 Mixed hyperlipidemia (principal)
CPT/HCPCS: 36415; 80053; 80061

== ENCOUNTER → 2022-06-10 | Outpatient (CLI) | payer MEDICARE ==
--- NOTE | 2022-06-10 12:31 | P.PN ---
Subjective DATE: 06/10/2022 FOLLOW UP VISIT. Patient with obstructive sleep apnea hypopnea syndrome return to sleep center for follow-up visit. Information from previous visit have been reviewed. Patient is using PAP equipment every night for the whole night, getting PAP supplies in time. The patient does not have significant problems with the mask, PAP unit and humidification. [place] sleepiness scale is 6. I checked information from PAP unit and discuss it with patient. PAP unit pressure , which is normal 12 cm H2O. Usage is 100 % for more then 4 hours, average 7.8 hours per night. Leak is 28 l/m, which is in acceptable range. Apnea Hypopnea Index is 1.1, which is perfect. MEDICATIONS:1. Plavix 75 mg once a day 2. Lipitor 80 mg once a day 3. Aspirin 81 mg once a day 4. Hydrochlorothiazide 25 mg once a day 5. Amlodipine 5 mg once a day 6. Lorazepam 1 mg once a day 7. Omeprazole 20 mg as needed 8. Quinapril 20 mg twice a day During physical exam: GENERAL: A pleasant patient without any distress. VITAL SIGNS: BP 143/77, HR 75, RR 16 , weight 232.0, temperature 97.2, oxygen saturation at room air 98 % . HEENT: PERRLA, EOMI.low position of soft palate, Mallapati 3 . NECK: Supple. No JVD. LUNGS: Clear to percussion and to auscultation. Good air exchange. No wheezing or rhonchi. HEART: S1, S2 regular. ABDOMEN: Soft and nontender. Slightly obese EXTREMITIES: No clubbing or cyanosis. PAPER DELIVERER: Awake, alert, and oriented x3. No focal deficit. Impressions: 1. Obstructive sleep apnea-hypopnea syndrome. Patient demonstrated great compliance with treatment, benefiting from treatment. 2. Coronary artery disease, status post 3 stent insertion, one of them recently. 3. Hypertension. 4. Acid reflux. 5. History of anxiety. 6. Status post TURP. 7. Obesity. Plan: 1. Continue using PAP equipment every night for the whole night. 2. To change air filter at least 1-2 times per month. 3. PAP unit should stay lower then position of the head. 4. Advised patient to remove all remaining water from humidifier canister daily and make it dry after each usage. Refill canister with fresh distilled water before each usage. 5. Sleep hygiene with regular time in bed for at least 8 hours. 6. Precautions related to driving. No driving if feel any sleepiness. 7. I will maintain prescription for PAP supplies including mask, tube, filters. 8. Follow up visit in 6 months or earlier if patient has any problems. 9. Watching and losing weight. Thank you very much for allowing me to participate in the management of your pa tient. Dallas Flores MD, PhD, FAASM. Diplomat of [place] [employer], Sleep Medicine Board by [place] [employer] Mechanical Engineering Manager of [facility] [place]
== END | disposition home or self-care (01) ==
LOC: SLEEP 10:58
PROVIDERS: ATTEND Internal Medicine
DX: G47.33 Obstructive sleep apnea (adult) (pediatric) (principal); I25.10 Atherosclerotic heart disease of native coronary artery without angina pectoris; I10 Essential (primary) hypertension; K21.9 Gastro-esophageal reflux disease without esophagitis; E66.9 Obesity, unspecified; Z86.59 Personal history of other mental and behavioral disorders; Z98.890 Other specified postprocedural states
CPT/HCPCS: 99212

== ENCOUNTER → 2022-12-09 | Outpatient (CLI) | payer MEDICARE ==
--- NOTE | 2022-12-09 13:40 | P.PN ---
Subjective DATE: 12/09/2022 FOLLOW UP VISIT. Patient with obstructive sleep apnea hypopnea syndrome return to sleep center for follow-up visit. Information from previous visit have been reviewed. Patient is using PAP equipment every night for the whole night, getting PAP supplies in time. The patient does not have significant problems with the mask, PAP unit and humidification. [place] sleepiness scale is 6, which is normal. I checked information from PAP unit and explaining to the patient in details. PAP unit pressure 12 cm H2O. Usage is 100 % for more then 4 hours, average 7.9 hours per night. Leak is 22 l/m, which is in acceptable range. Apnea Hypopnea Index is 1.2, which is normal. MEDICATIONS:1. Lipitor 80 mg once a day 2. Plavix 75 mg once a day 3. Aspirin 81 mg once a day 4. Hydrochlorothiazide 25 mg once a day 5. Amlodipine 5 mg once a day 6. Lorazepam 1 mg for sleep 7. Pantoprazole 40 mg once a day 8. Tadalafil 20 mg as needed During physical exam: GENERAL: A pleasant patient without any distress. VITAL SIGNS: BP 147/85, HR 82, RR 16, weight 236, temperature 98.0, oxygen saturation at room air 95 % . HEENT: PERRLA, EOMI.low position of soft palate, Mallapati 3. NECK: Supple. No JVD. LUNGS: Clear to percussion and to auscultation. Good air exchange. No wheezing or rhonchi. HEART: S1, S2 regular. ABDOMEN: Soft and nontender. Slightly obese EXTREMITIES: No clubbing or cyanosis. LACE AND TEXTILES RESTORER: Awake, alert, and oriented x3. No focal deficit. Impressions: 1. Obstructive sleep apnea-hypopnea syndrome. Patient demonstrated great compliance with treatment, benefiting from treatment. 2. Obesity, body mass index 35.2, patient increased his weight on 4 pounds comparing with previous visit. 3. Coronary artery disease, status post post-3 stent insertion. 4. Hypertension. 5. History of anxiety. 6. status post TURP. Plan: 1. Continue using PAP equipment every night for the whole night. 2. To change air filter at least 1-2 times per month. 3. PAP unit should stay lower then position of the head. 4. Advised patient to remove all remaining water from humidifier canister daily and make it dry after each usage. Refill canister with fresh distilled water before each usage. 5. Sleep hygiene with regular time in bed for at least 8 hours. 6. Precautions related to driving. No driving if feel any sleepiness. 7. I will maintain prescription for PAP supplies including mask, tube, filters. 8. Watching And losing weight. 9. Follow up visit in 6 months or earlier if patient has any problems. Thank you very much for allowing me to participate in the management of your patient. Dallas Flores MD, PhD, FAASM. Diplomat of [place] [employer], Sleep Medicine Board by [place] [employer] Acid Tester of [facility] [place]
== END ==
LOC: SLEEP 13:14
PROVIDERS: ATTEND Internal Medicine
DX: G47.33 Obstructive sleep apnea (adult) (pediatric) (principal); I25.10 Atherosclerotic heart disease of native coronary artery without angina pectoris; I10 Essential (primary) hypertension; F41.9 Anxiety disorder, unspecified; E66.9 Obesity, unspecified; Z68.35 Body mass index [BMI] 35.0-35.9, adult; Z79.899 Other long term (current) drug therapy; Z99.89 Dependence on other enabling machines and devices; Z90.79 Acquired absence of other genital organ(s); Z79.82 Long term (current) use of aspirin; Z91.048 Other nonmedicinal substance allergy status; Z88.1 Allergy status to other antibiotic agents; Z88.5 Allergy status to narcotic agent
CPT/HCPCS: 99212

== ENCOUNTER 2023-01-28 11:51 | Day surgery (SDC) | payer MEDICARE ==
[~2023-01-28 11:51] MED LIST changes: -ALPRAZolam 0.25 MG TAB PO PRN; -ALPRAZolam 0.5 MG TAB PO PRN; -HEPARIN SODIUM,PORCINE 10,000 UNIT in SODIUM CHLORIDE 0.9% 1,000 ML IRRIGATION PRN; -HEPARIN SODIUM,PORCINE 2,500 UNIT in SODIUM CHLORIDE 0.9% 250 ML IRRIGATION PRN; +LACTATED RINGERS 1,000 ML IV SCH; +LIDOCAINE 1% (10MG/ML) FOR IV START INTRADERMA PRN; -SODIUM CHLORIDE 0.9% 1,000 ML in EMPTY BAG 1 BAG IV ONE
[2023-01-28 13:01] VITALS: RESP 16; TEMP 97.6
[2023-01-28] MEDS ORDERED: PROPOFOL 10 MG/ML 20 ML VIAL IV ONE (14:21)
--- NOTE | 2023-01-28 14:40 | P.PCN ---
Date of Procedure: 01/28/23 Procedure(s) Performed: BRIEF HISTORY: Patient is a 72-year-old, pleasant, male scheduled for an upper endoscopy as a part of evaluation of long-standing history of GERD for which is on Protonix 40 mg daily. He had an episode of melena weeks ago.. PROCEDURE PERFORMED: Esophagogastroduodenoscopy with biopsy. PREOPERATIVE DIAGNOSIS: GERD and melena IV sedation per anesthesia. PROCEDURE: After informed consent was obtained, the patient was brought into the endoscopy unit. IV sedation was administered by Anesthesia under continuous monitoring. Initially the Olympus GIF-140 video endoscope was inserted into the mouth. Esophagus intubated without any difficulty. It was gradually advanced into the stomach and duodenum and carefully examined. The bulb and the second part of the duodenum appeared normal. The scope at this time was withdrawn to the stomach, adequately insufflated with air, and upon careful examination, mucosa of the antrum, had mild gastritis and biopsies were done from this area. Mucosa of the body, cardia and the fundus appeared normal. The scope was then withdrawn into the esophagus. Small hiatal hernia. The GE junction was located at 39 cm from the incisors. The esophagus appeared normal. There were no erosions or ulcerations seen and the patient tolerated the procedure well. IMPRESSION: 1. Mild antral gastritis. 2. Small hiatal hernia but no evidence of esophagitis or peptic ulcer disease. RECOMMENDATIONS: The findings of this examination were discussed with the patient well as his family. He was advised to follow with the biopsy results. He will continue with Protonix 40 mg daily and follow antireflux measures..
[2023-01-28 15:08] VITALS: BP 120/68; PULSE 68
== END 2023-01-28 15:26 | disposition home or self-care (01) ==
LOC: ORWHC2ENDO 11:51
PROVIDERS: ATTEND Internal Medicine Gastroenterology
DX: K29.50 Unspecified chronic gastritis without bleeding (principal); K44.9 Diaphragmatic hernia without obstruction or gangrene; K21.9 Gastro-esophageal reflux disease without esophagitis; K92.1 Melena; I25.10 Atherosclerotic heart disease of native coronary artery without angina pectoris; I10 Essential (primary) hypertension; E78.5 Hyperlipidemia, unspecified; G47.33 Obstructive sleep apnea (adult) (pediatric); Z88.5 Allergy status to narcotic agent; Z79.82 Long term (current) use of aspirin; Z79.899 Other long term (current) drug therapy
CPT/HCPCS: 88305; 43239; J2704

== ENCOUNTER → 2023-06-23 | Outpatient (CLI) | payer MEDICARE ==
--- NOTE | 2023-06-23 13:59 | P.PN ---
Subjective DATE: 06/23/2023 FOLLOW UP VISIT. Patient with obstructive sleep apnea hypopnea syndrome return to sleep center for follow-up visit. Information from previous visit have been reviewed. Patient is using PAP equipment every night for the whole night, getting PAP supplies in time. The patient does not have significant problems with the mask, PAP unit and humidification. [place] sleepiness scale is 9, which is borderline. I checked information from PAP unit and discussed it with patient in details. PAP unit pressure 12 cm H2O. Usage is 100 % for more then 4 hours, average 8.5 hours per night. Leak is to 18 l/m, which is in acceptable range. Apnea Hypopnea Index is 1.1, which is normal. MEDICATIONS:1. Lipitor 80 mg once a day 2. Aspirin 81 mg once a day 3. Hydrochlorothiazide 25 mg once a day 4. Amlodipine 5 mg once a day 5. Lorazepam 1 mg once a day 6. Pantoprazole 40 mg once a day 7. Vania 180 mg once a day During physical exam: GENERAL: A pleasant patient without any distress. VITAL SIGNS: BP 138/76, HR 79, RR 16 , weight 243.2, temperature 98.2, oxygen saturation at room air 96 % . HEENT: PERRLA, EOMI.low position of soft palate, Mallapati 3 . NECK: Supple. No JVD. LUNGS: Clear to percussion and to auscultation. Good air exchange. No wheezing or rhonchi. HEART: S1, S2 regular. ABDOMEN: Soft and nontender. Slightly obese EXTREMITIES: No clubbing or cyanosis. RIFFLER TENDER: Awake, alert, and oriented x3. No focal deficit. Impressions: 1. Obstructive sleep apnea-hypopnea syndrome. Patient demonstrated great compli ance with treatment, benefiting from treatment. 2. Obesity, patient increased his weight on 7 pounds comparing to the previous visit. 3. Coronary artery disease, status post 3 stent insertions. 4. Hypertension. 5. History of anxiety. 6. Status post TURP. Plan: 1. Continue using PAP equipment every night for the whole night. 2. To change air filter at least 1-2 times per month. 3. PAP unit should stay lower then position of the head. 4. Advised patient to remove all remaining water from humidifier canister daily and make it dry after each usage. Refill canister with fresh distilled water before each usage. 5. Sleep hygiene with regular time in bed for at least 8 hours. 6. Precautions related to driving. No driving if feel any sleepiness. 7. I will maintain prescription for PAP supplies including mask, tube, filters. 8. Follow up visit in 6 months or earlier if patient has any problems. 9. Watching and losing weight. Thank you very much for allowing me to participate in the management of your patient. Dallas Flores MD, PhD, FAASM. Diplomat of [place] [employer] Medicine, Sleep Medicine Board by [place] [employer] Supervisor Phosphoric Acid of [facility] [place]
== END ==
LOC: 3 N SLEEP 13:38
PROVIDERS: ATTEND Internal Medicine
DX: G47.33 Obstructive sleep apnea (adult) (pediatric) (principal); E66.9 Obesity, unspecified; F41.9 Anxiety disorder, unspecified; I10 Essential (primary) hypertension; I25.10 Atherosclerotic heart disease of native coronary artery without angina pectoris; Z90.79 Acquired absence of other genital organ(s); Z79.899 Other long term (current) drug therapy; Z99.89 Dependence on other enabling machines and devices; Z91.048 Other nonmedicinal substance allergy status; Z88.0 Allergy status to penicillin; Z88.5 Allergy status to narcotic agent; Z88.8 Allergy status to other drugs, medicaments and biological substances; Z79.02 Long term (current) use of antithrombotics/antiplatelets; Z79.82 Long term (current) use of aspirin
CPT/HCPCS: 99212

== ENCOUNTER → 2024-01-19 | Outpatient (CLI) | payer MEDICARE ==
--- NOTE | 2024-01-19 14:37 | P.PROGSL ---
Subjective DATE: 01/19/2024 FOLLOW UP VISIT. Patient with obstructive sleep apnea hypopnea syndrome return to sleep center for follow-up visit. Information from previous visit have been reviewed. Patient is using PAP equipment every night for the whole night, getting PAP supplies in time. The patient does not have significant problems with the mask, PAP unit and humidification. [place] sleepiness scale is 6, which is normal. I checked information from PAP unit. PAP unit pressure 12 cm H2O. Usage is 100% for more then 4 hours, average 7.7 hours per night. Leak is 20 l/m, which is in acceptable range. Apnea Hypopnea Index is 1.2, which is normal. MEDICATIONS: Please see below During physical exam: GENERAL: A pleasant patient without any distress. VITAL SIGNS: Please see below, weight 248.2 pounds. HEENT: PERRLA, EOMI.low position of soft palate, Mallapati 3 . NECK: Supple. No JVD. LUNGS: Clear to percussion and to auscultation. Good air exchange. No wheezing or rhonchi. HEART: S1, S2 regular. ABDOMEN: Soft and nontender. Obese EXTREMITIES: No clubbing or cyanosis. PHARMACY SERVICE ASSOCIATE: Awake, alert, and oriented x3. No focal deficit. Impressions: 1. Obstructive sleep apnea-hypopnea syndrome. Patient demonstrated great compliance with treatment, benefiting from treatment. 2. Obesity, patient increased weight on 6 pounds comparing with previous visit, BMI 37.0. 3. Coronary artery disease, status post 3 stents insertion. 4. Hypertension. 5. History of anxiety. 6. Status post TURP. Plan: 1. Continue using PAP equipment every night for the whole night. 2. To change air filter at least 1-2 times per month. 3. PAP unit should stay lower then position of the head. 4. Advised patient to remove all remaining water from humidifier canister daily and make it dry after each usage. Refill canister with fresh distilled water before each usage. 5. Sleep hygiene with regular time in bed for at least 8 hours. 6. Precautions related to driving. No driving if feel any sleepiness. 7. I will maintain prescription for PAP supplies including mask, tube, filters. 8. Watching and losing weight. 9. Follow up visit in 6 months or earlier if patient has any problems. Thank you very much for allowing me to participate in the management of your patient. Dallas Flores MD, PhD, FAASM. Diplomat of [employer], Sleep Medicine Board by [employer] Tent Worker of [facility] [place] Objective - Vital Signs Vital Signs: Vital Signs Temp 97.6 F 01/19/24 14:27 Pulse 70 01/19/24 14:27 Resp 18 01/19/24 14:27 BP 137/78 01/19/24 14:27 Pulse Ox 97 01/19/24 14:27 FiO2 Intake & Output 01/18/24 01/19/24 01/19/24 18:59 06:59 18:59 Weight 112.094 kg Home Medications: Home Medications Medication Instructions Recorded Confirmed Type Hydrochlorothiazide 25 mg PO DAILY 08/07/14 01/19/24 History LORazepam [Lorazepam] 1 mg PO HS PRN 08/07/14 01/19/24 History Quinapril HCl [Accupril] 20 mg PO BID 08/07/14 01/28/23 History amLODIPine BESYLATE [Amlodipine 5 mg PO DAILY 08/07/14 01/19/24 History Besylate] Multivitamin [Men's Multi-Vitamin] 1 tab PO DAILY 01/01/15 01/19/24 History Fish Oil/Dha/Epa [Fish Oil 1,200 1,200 mg PO DAILY 10/31/19 01/19/24 History mg Fish Oil] Cholecalciferol [Vitamin D3 (25 50 mcg PO DAILY 11/03/20 01/28/23 History Mcg = 1000 Iu)] Famotidine [Pepcid] 20 mg PO DAILY PRN 11/03/20 01/19/24 History Magnesium 102 mg PO DAILY 11/03/20 01/19/24 History Aspirin 81 mg PO DAILY chew 11/05/20 01/19/24 Rx Atorvastatin [Lipitor] 80 mg PO HS 90 Days #90 tab 11/05/20 01/19/24 Rx Clopidogrel [Plavix] 75 mg PO DAILY 90 Days #90 tab 11/05/20 01/28/23 Rx Nitroglycerin 0.4 mg SL Q5M PRN MDD pain 04/05/22 01/19/24 History Pantoprazole [Protonix] 40 mg PO DAILY 01/27/23 01/19/24 History tadalafiL 20 mg PO DAILY PRN 01/27/23 01/28/23 History Cholecalciferol (Vitamin D3) 2,000 mg PO DAILY 01/19/24 01/19/24 History [Vitamin D3 (50 Mcg = 2000 Iu) Chew Tab] Cholecalciferol (Vitamin D3) 50 mcg PO 01/19/24 History [Vitamin D3 (50 Mcg = 2000 Iu)] Fexofenadine HCl [Vania Allergy] 180 mg PO DAILY 01/19/24 01/19/24 History Ketotifen 0.025% Ophth Soln 1 drop BOTH EYES BID 01/19/24 01/19/24 History [Zaditor] lisinopriL [Prinivil] 20 mg PO BID 01/19/24 01/19/24 History
[2024-01-19 14:52] VITALS: BP 137/78; PULSE 70; RESP 18; TEMP 97.6
== END ==
LOC: 3 N SLEEP 13:43
PROVIDERS: ATTEND Internal Medicine
DX: G47.33 Obstructive sleep apnea (adult) (pediatric) (principal); E66.9 Obesity, unspecified; I25.10 Atherosclerotic heart disease of native coronary artery without angina pectoris; I10 Essential (primary) hypertension; F41.9 Anxiety disorder, unspecified; Z98.890 Other specified postprocedural states; Z99.89 Dependence on other enabling machines and devices; Z68.37 Body mass index [BMI] 37.0-37.9, adult; Z79.02 Long term (current) use of antithrombotics/antiplatelets; Z79.899 Other long term (current) drug therapy; Z91.048 Other nonmedicinal substance allergy status; Z88.0 Allergy status to penicillin; Z88.1 Allergy status to other antibiotic agents; Z88.5 Allergy status to narcotic agent
CPT/HCPCS: 99212

== ENCOUNTER → 2024-09-13 | Outpatient (CLI) | payer MEDICARE ==
[2024-09-13 10:51] VITALS: BP 151/78; PULSE 76; RESP 16; TEMP 97.7
--- NOTE | 2024-09-13 11:07 | P.PROGSL ---
Subjective DATE: 09/13/2024 FOLLOW UP VISIT. Patient with obstructive sleep apnea hypopnea syndrome return to sleep center for follow-up visit. Information from previous visit have been reviewed. Patient is using PAP equipment every night for the whole night, getting PAP supplies in time. The patient does not have significant problems with the mask, PAP unit and humidification. [place] sleepiness scale is 5, which is normal. I checked information from PAP unit. PAP unit pressure 12 cm H2O. Usage is 100% for more then 4 hours, average 7.7 hours per night. Leak is 17 l/m, which is in acceptable range. Apnea Hypopnea Index is 1.0, which is normal. MEDICATIONS have been reviewed, please see below. During physical exam: GENERAL: A pleasant patient without any distress. VITAL SIGNS: Please see below, weight is 239 lbs. HEENT: PERRLA, EOMI.low position of soft palate, Mallapati 3. NECK: Supple. No JVD. LUNGS: Clear to percussion and to auscultation. Good air exchange. No wheezing or rhonchi. HEART: S1, S2 regular. ABDOMEN: Soft and nontender.[] EXTREMITIES: No clubbing or cyanosis. STERNMAN: Awake, alert, and oriented x3. No focal deficit. Impressions: 1. Obstructive sleep apnea-hypopnea syndrome. Patient demonstrated great compliance with treatment, benefiting from treatment. 2. Mild obesity, BMI 35.8, patient lost 9 pounds comparing with previous visit. 3. Hypertension. 4. Coronary artery disease, status post 3 stent insertions. 5. History of anxiety. 6. Status post TURP. Plan: 1. Continue using PAP equipment every night for the whole night. 2. Sleep hygiene with regular time in bed for at least 7.5-8 hours 3. PAP unit should stay lower then position of the head. 4. Advised patient to remove all remaining water from humidifier canister daily and make it dry after each usage. Refill canister with fresh distilled water before each usage. 5. Watching and continue losing weight. 6. Precautions related to driving. No driving if feel any sleepiness. 7. I will maintain prescription for PAP supplies including mask, tube, filters. 8. Follow up visit in 8 months or earlier if patient has any problems. Thank you very much for allowing me to participate in the management of your patient. Dallas Flores MD, PhD, FAASM. Diplomat of [employer], Sleep Medicine Board by [employer] Skiving Machine Operator of [facility] [place] Objective - Vital Signs Vital Signs: Vital Signs Temp 97.7 F 09/13/24 10:50 Pulse 76 09/13/24 10:50 Resp 16 09/13/24 10:50 BP 151/78 09/13/24 10:50 Pulse Ox 98 09/13/24 10:50 FiO2 Intake & Output 09/12/24 09/13/24 09/13/24 18:59 06:59 18:59 Weight 108.409 kg Home Medications: Home Medications Medication Instructions Recorded Confirmed Type Hydrochlorothiazide 25 mg PO DAILY 08/07/14 09/13/24 History LORazepam [Lorazepam] 1 mg PO HS PRN 08/07/14 09/13/24 History Quinapril HCl [Accupril] 20 mg PO BID 08/07/14 01/28/23 History amLODIPine BESYLATE [Amlodipine 5 mg PO DAILY 08/07/14 09/13/24 History Besylate] Multivitamin [Men's Multi-Vitamin] 1 tab PO DAILY 01/01/15 09/13/24 History Fish Oil/Dha/Epa [Fish Oil 1,200 1,200 mg PO DAILY 10/31/19 09/13/24 History mg Fish Oil] Cholecalciferol [Vitamin D3 (25 50 mcg PO DAILY 11/03/20 01/28/23 History Mcg = 1000 Iu)] Famotidine [Pepcid] 20 mg PO DAILY PRN 11/03/20 09/13/24 History Magnesium 102 mg PO DAILY 11/03/20 09/13/24 History Aspirin 81 mg PO DAILY chew 11/05/20 09/13/24 Rx Atorvastatin [Lipitor] 80 mg PO HS 90 Days #90 tab 11/05/20 09/13/24 Rx Clopidogrel [Plavix] 75 mg PO DAILY 90 Days #90 tab 11/05/20 01/28/23 Rx Nitroglycerin 0.4 mg SL Q5M PRN MDD pain 04/05/22 09/13/24 History Pantoprazole [Protonix] 40 mg PO DAILY 01/27/23 09/13/24 History tadalafiL 20 mg PO DAILY PRN 01/27/23 01/28/23 History Cholecalciferol (Vitamin D3) 2,000 mg PO DAILY 01/19/24 01/19/24 History [Vitamin D3 (50 Mcg = 2000 Iu) Chew Tab] Cholecalciferol (Vitamin D3) 50 mcg PO 01/19/24 History [Vitamin D3 (50 Mcg = 2000 Iu)] Fexofenadine HCl [Vania Allergy] 180 mg PO DAILY 01/19/24 09/13/24 History Ketotifen 0.025% Ophth Soln 1 drop BOTH EYES BID 01/19/24 09/13/24 History [Zaditor] lisinopriL [Prinivil] 20 mg PO BID 01/19/24 09/13/24 History
== END ==
LOC: 3 N SLEEP 10:37
PROVIDERS: ATTEND Internal Medicine
DX: G47.33 Obstructive sleep apnea (adult) (pediatric) (principal); I10 Essential (primary) hypertension; I25.10 Atherosclerotic heart disease of native coronary artery without angina pectoris; F41.9 Anxiety disorder, unspecified; Z68.35 Body mass index [BMI] 35.0-35.9, adult; Z48.816 Encounter for surgical aftercare following surgery on the genitourinary system; Z95.820 Peripheral vascular angioplasty status with implants and grafts; Z99.89 Dependence on other enabling machines and devices; Z91.09 Other allergy status, other than to drugs and biological substances; Z88.0 Allergy status to penicillin; Z88.5 Allergy status to narcotic agent; Z88.8 Allergy status to other drugs, medicaments and biological substances
CPT/HCPCS: 99212

== ENCOUNTER → 2024-09-20 | Outpatient (CLI) | payer MEDICARE ==
--- NOTE | 2024-09-20 08:54 | US ---
EXAMINATION TYPE: US liver DATE OF EXAM: 09/20/2024 COMPARISON: NONE CLINICAL INDICATION: Male, 73 years old with history of R74.01 ELEVATION OF LEVELS OF LIVER TRANSAMIN ASE L; elevated liver enzymes. TECHNIQUE: Grayscale and color Doppler imaging of the right upper quadrant was performed. FINDINGS: EXAM MEASUREMENTS: Liver Length: 19.3 cm Gallbladder: Surgically absent CBD: .4 cm Right Kidney: 12.1 x 5.2 x 4.5 cm Pancreas: Only a portion of the pancreatic head and neck is seen. Remainder is obscured by bowel gas shadowing. Liver: Liver mildly enlarged, tiny 1.2 cm central right liver lobe cyst. Gallbladder: Surgically absent Evidence for sonographic Hidalgo's sign: no CBD: wnl Right Kidney: wnl IMPRESSION: Status post cholecystectomy. No biliary ductal dilatation. Incidental small 1.2 cm benign hepatic cys t. [facility] Khadra Sharma, Workstation: [facility]ITALThe [facility] Life GuidesKERRY, 09/20/2024 8:52 AM
== END | disposition home or self-care (01) ==
LOC: RADUSWWP 07:09
PROVIDERS: ATTEND Internal Medicine
DX: K76.89 Other specified diseases of liver (principal); R74.01 Elevation of levels of liver transaminase levels; Z90.49 Acquired absence of other specified parts of digestive tract
CPT/HCPCS: 76705